=== PATIENT | female | born 1960 | race Caucasian/White ===

== ENCOUNTER 2017-03-16 09:53 | Emergency (ER) | payer OTHER ==
[~2017-03-16] VITALS: Ht 147.3 cm; Wt 69.9 kg
[2017-03-16 09:53] VITALS: BP 135/69
== END 2017-03-16 11:50 | disposition home or self-care (01) ==
LOC: ER 09:56
DX: S93.402A Sprain of unspecified ligament of left ankle, initial encounter (principal); W18.40XA Slipping, tripping and stumbling without falling, unspecified, initial encounter; Y93.89 Activity, other specified; Y92.89 Other specified places as the place of occurrence of the external cause; Y99.8 Other external cause status
CPT/HCPCS: 73610; 99284; A4606; Z7610